=== PATIENT | female | born 1995 | race Two or more races ===

== ENCOUNTER 2019-01-14 21:46 | Emergency (ER) | payer MEDICAID ==
[~2019-01-14] VITALS: Ht 154.9 cm; Wt 63.0 kg
[2019-01-14] MEDS ORDERED: KETOROLAC 60MG/2ML VIAL IM STA (23:41)
[2019-01-14] MEDS ORDERED: LIDOCAINE HCL/PF 1% 10 MG/ML 5ML VIAL IJ ONE (23:45)
[2019-01-14] MEDS ORDERED: BACITRACIN ZINC OINT UDPKT TOP ONE (23:45)
[2019-01-15 00:04] LABS: CLARITY URINE CLOUDY (CLEAR); COLOR URINE YELLOW (YELLOW); KETONES URINE NEGATIVE (NEGATIVE); LEUKOCYTE ESTERASE URINE 2+ (NEGATIVE); NITRITE URINE NEGATIVE (NEGATIVE); OCCULT BLOOD URINE 1+ (NEGATIVE); PH URINE 6.5 (4.5-8.0); PROTEIN URINE TRACE (NEGATIVE); SPECIFIC GRAVITY URINE 1.024 (1.005-1.030)
[2019-01-15 00:58] VITALS: BP 114/69
== END 2019-01-15 01:01 | disposition home or self-care (01) ==
LOC: ER 21:46
DX: N75.1 Abscess of Bartholin's gland (principal)
CPT/HCPCS: 56420; 81003; 81025; 87086; 96372; 99284; J1885; J3490; Z7610

== ENCOUNTER 2019-04-09 03:28 | Emergency (ER) | payer MEDICAID ==
[~2019-04-09] VITALS: Ht 154.9 cm; Wt 59.0 kg
[2019-04-09 03:33] VITALS: BP 130/85
[2019-04-09 07:20] LABS: CLARITY URINE CLEAR (CLEAR); COLOR URINE DARK YELLOW (YELLOW); KETONES URINE NEGATIVE (NEGATIVE); LEUKOCYTE ESTERASE URINE 2+ (NEGATIVE); NITRITE URINE POSITIVE (NEGATIVE); OCCULT BLOOD URINE NEGATIVE (NEGATIVE); PH URINE 6.5 (4.5-8.0); PROTEIN URINE NEGATIVE (NEGATIVE); SPECIFIC GRAVITY URINE 1.003 (1.005-1.030); UROBILINOGEN URINE 0.2 E.U./dL (0.2-1.0)
== END 2019-04-09 07:50 | disposition home or self-care (01) ==
LOC: ER 03:28
DX: N39.0 Urinary tract infection, site not specified (principal); N76.0 Acute vaginitis; F17.210 Nicotine dependence, cigarettes, uncomplicated
CPT/HCPCS: 81003; 81025; 87077; 87210; 99283

== ENCOUNTER 2020-07-10 17:03 | Emergency (ER) | payer MEDICAID ==
[~2020-07-10] VITALS: Ht 154.9 cm; Wt 57.0 kg
[2020-07-10 17:50] LABS: CLARITY URINE CLOUDY (CLEAR); COLOR URINE YELLOW (YELLOW); KETONES URINE TRACE (NEGATIVE); LEUKOCYTE ESTERASE URINE 3+ (NEGATIVE); NITRITE URINE NEGATIVE (NEGATIVE); OCCULT BLOOD URINE NEGATIVE (NEGATIVE); PROTEIN URINE TRACE (NEGATIVE); SPECIFIC GRAVITY URINE 1.022 (1.005-1.030); UROBILINOGEN URINE 0.2 E.U./dL (0.2-1.0)
[2020-07-10 18:00] LABS: *BARBITURATES SCREEN URINE NEGATIVE (NEGATIVE)
[2020-07-10 18:01] LABS: *BENZODIAZEPINES SCREEN URINE NEGATIVE (NEGATIVE); *COCAINE SCREEN URINE NEGATIVE (NEGATIVE); METHADONE URINE SCREEN NEGATIVE (NEGATIVE); OPIATES URINE SCREEN NEGATIVE (NEGATIVE); PHENCYCLIDINE URINE SCREEN NEGATIVE (NEGATIVE)
[2020-07-10 18:02] LABS: CANNABINOID URINE SCREEN NEGATIVE (NEGATIVE)
[2020-07-10 18:04] LABS: *AMPHETAMINES SCREEN URINE PRESUMTIVE POSITIVE (NEGATIVE)
[2020-07-10] MEDS ORDERED: CEFTRIAXONE SODIUM 250 MG/VIAL IM ONE (20:00)
[2020-07-10] MEDS ORDERED: IBUPROFEN 600MG TABLET PO ONE (20:00)
[2020-07-10] MEDS ORDERED: DOXY100C2 MT (20:22)
[2020-07-10] MEDS ORDERED: METR500T MT (20:22)
[2020-07-10] MEDS ORDERED: IBUP-2028 MT (20:22)
[2020-07-10 20:31] VITALS: BP 117/73
[2020-07-13 17:06] LABS: NEISSERIA GONORRHOEAE NAA Positive (Negative)
== END 2020-07-10 20:31 | disposition home or self-care (01) ==
LOC: ER 17:03
DX: A54.02 Gonococcal vulvovaginitis, unspecified (principal); R00.0 Tachycardia, unspecified; F12.90 Cannabis use, unspecified, uncomplicated
CPT/HCPCS: 80305; 81003; 87086; 87210; 87491; 87591; 96372; 99283; J0696; Z7610